=== PATIENT | female | born 1950 | race African-American/Black ===

== ENCOUNTER 2021-02-16 06:04 | Observation (INO) ==
[2021-02-16 08:39] LABS: Basophils % 0.2 %; Eosinophils # 0.1 K/mcL (0.0-0.6); Eosinophils % 0.5 %; Hematocrit 40.6 % (35.3-44.9); Hemoglobin 12.5 g/dL (11.5-15.4); Immature Granulocytes % 0.3 % (0-4); Lymphocytes # 1.4 K/mcL (0.6-4.6); Lymphocytes % 14.1 %; Mean Corpuscular HGB Conc 30.8 g/dL (31.6-35.5); Mean Corpuscular Hemoglobin 29.1 pg (28.0-33.3); Mean Corpuscular Volume 94.4 fL (83.0-100.0); Mean Platelet Volume 9.5 fL (9.4-12.4); Monocytes # 0.8 K/mcL (0.0-1.3); Monocytes % 8.3 %; Neutrophils # 7.4 K/mcL (1.6-8.9); Platelet Count 257 K/mcL (140-400); Red Cell Distribution Width 13.4 % (11.5-14.5); Segmented Neutrophils % 76.6 %; White Blood Count 9.7 K/mcL (4.3-11.1)
[2021-02-16 09:00] LABS: Albumin 4.1 g/dL (3.5-5.7); Albumin/Globulin Ratio 1.4 (1.1-2.2); Bilirubin,Direct 0.1 mg/dL (0.0-0.2); Bilirubin,Indirect 0.4 mg/dL (0.0-1.0); Bilirubin,Total 0.5 mg/dL (0.3-1.0); Globulin 2.9 g/dL (2.4-3.5)
[2021-02-16 09:02] LABS: BUN/Creatinine Ratio 12 (6-26); Blood Urea Nitrogen 9 mg/dL (8-23); Calcium 8.7 mg/dL (8.6-10.3); Carbon Dioxide 22 mEq/L (23-29); Chloride 106 mEq/L (98-107); Glucose 95 mg/dL (70-105); Osmolality,Calculated 280 (280-300); Potassium 3.6 mEq/L (3.5-5.1); Sodium 136 mEq/L (136-145); Troponin I < 0.03 ng/mL (< 0.04); eGFR For African Americans > 60 (> 60); eGFR For Non-African Americans > 60 (> 60)
[2021-02-16] MEDS ORDERED: diazePAM 5 MG TABLET PO PRN (12:22)
[2021-02-16 12:54] LABS: Magnesium 2.1 mg/dL (1.6-2.6)
[2021-02-16] MEDS ORDERED: Acetaminophen 325 MG TABLET PO PRN (13:50)
[2021-02-16] MEDS ORDERED: Ondansetron ODT 4 MG TAB.RAPDIS SL PRN (13:50)
[2021-02-16] MEDS: Budesonide/Formoterol 160/4.5 1 PUFF INH IH SCH (19:50)
[2021-02-16] MEDS: Spironolactone 25 MG TABLET PO SCH (20:48)
[2021-02-16] MEDS ORDERED: estradioL 1 MG TABLET PO SCH (21:00)
[2021-02-16] MEDS ORDERED: Gabapentin 300 MG CAPSULE PO SCH (21:00)
[2021-02-17] MEDS ORDERED: Regadenoson 0.4 MG/5 ML SYRINGE IVP ONE (05:58)
[2021-02-17] MEDS: Budesonide/Formoterol 160/4.5 1 PUFF INH IH SCH (07:57)
[2021-02-17] MEDS ORDERED: Loratadine 10 MG TABLET PO SCH (09:00)
[2021-02-17] MEDS ORDERED: FELODIPINE 2.5 MG PO SCH (09:00)
[2021-02-17] MEDS: Spironolactone 25 MG TABLET PO SCH (09:38)
[2021-02-17 11:45] VITALS: BP 119/71
== END 2021-02-17 13:41 | disposition home or self-care (01) ==
LOC: CDU 06:04 → EMEROOARM 06:04 → CDU 10:40 → 3BNU 13:59
PROVIDERS: ADMIT Internal Medicine; ATTEND Internal Medicine

== ENCOUNTER 2022-01-10 17:27 | Observation (INO) ==
[2022-01-10 18:23] LABS: Basophils % 0.3 %; Eosinophils % 0.4 %; Hematocrit 42.4 % (35.3-44.9); Hemoglobin 13.5 g/dL (11.5-15.4); Immature Granulocytes % 0.3 % (0-4); Lymphocytes # 2.2 K/mcL (0.6-4.6); Lymphocytes % 21.6 %; Mean Corpuscular HGB Conc 31.8 g/dL (31.6-35.5); Mean Corpuscular Hemoglobin 29.2 pg (28.0-33.3); Mean Corpuscular Volume 91.8 fL (83.0-100.0); Mean Platelet Volume 9.7 fL (9.4-12.4); Monocytes # 0.7 K/mcL (0.0-1.3); Monocytes % 6.3 %; Neutrophils # 7.3 K/mcL (1.6-8.9); Platelet Count 255 K/mcL (140-400); Red Blood Count 4.62 M/mcL (3.82-4.97); Red Cell Distribution Width 13.6 % (11.5-14.5); Segmented Neutrophils % 71.1 %; White Blood Count 10.3 K/mcL (4.3-11.1)
[2022-01-10 18:34] LABS: INR 1.1; Prothrombin Time 12.1 Seconds (9.4-12.1)
[2022-01-10 19:07] LABS: BUN/Creatinine Ratio 11 (6-26); Blood Urea Nitrogen 9 mg/dL (8-23); Carbon Dioxide 25 mEq/L (23-29); Chloride 105 mEq/L (98-107); Glucose 163 mg/dL (70-105); Osmolality,Calculated 288 (280-300); Potassium 3.5 mEq/L (3.5-5.1); Sodium 138 mEq/L (136-145); Troponin I < 0.03 ng/mL (< 0.04); eGFR For African Americans > 60 (> 60); eGFR For Non-African Americans > 60 (> 60)
[2022-01-10] MEDS ORDERED: *HR* Heparin 5,000 UNIT/ML VIAL IVP PRN ×2 (19:41)
[2022-01-10] MEDS ORDERED: *HR* Heparin 5,000 UNIT/ML VIAL IVP ONE (19:41)
[2022-01-10] MEDS ORDERED: Heparin 25,000UNIT/250ML 1/2NS 25,000 UNIT/250 ML IV.SOLN IVC SCH (19:45)
[2022-01-10] MEDS ORDERED: Naloxone 0.4 MG/ML INJ IVP PRN (19:50)
[2022-01-10] MEDS ORDERED: Ondansetron 4 MG/2 ML VIAL IVP PRN (19:50)
[2022-01-10] MEDS ORDERED: Acetaminophen 325 MG TABLET PO PRN (19:50)
[2022-01-10] MEDS ORDERED: Perflutren Lipid Microsphere 1.3 ML in 0.9 % Sodium Chloride 8.7 ML IVP PRN (19:55)
[2022-01-10 20:03] LABS: Bilirubin,Urine Negative (Negative); Blood,Urine Negative (Negative); Clarity,Urine Clear (Clear); Color,Urine Colorless (Yellow); Glucose,Urine (UA) Normal (Normal); Ketones,Urine Negative (Negative); Leukocyte Esterase,Urine Negative (Negative); Nitrite,Urine Negative (Negative); Protein,Urine Negative (Neg-Trace); Specific Gravity,Urine > 1.030 (1.010-1.025); Urobilinogen,Urine Normal (Normal)
[2022-01-10 22:38] LABS: INR 1.1; Prothrombin Time 12.3 Seconds (9.4-12.1)
[2022-01-10 22:39] LABS: Heparin anti-factor XA UFH 1.67 IU/mL (0.30-0.70)
[2022-01-10] MEDS ORDERED: Sucralfate 1 GM TABLET PO PRN (22:51)
[2022-01-10] MEDS ORDERED: diazePAM 5 MG TABLET PO PRN (22:51)
[2022-01-11 04:02] LABS: Adenovirus Not Detected (Not Detect); Coronavirus 229E Not Detected (Not Detect); Coronavirus HKU1 Not Detected (Not Detect); Coronavirus NL63 Not Detected (Not Detect); Coronavirus OC43 Not Detected (Not Detect)
[2022-01-11 04:03] LABS: Bordetella Pertussis Not Detected (Not Detect); Chlamydophila pneumoniae Not Detected (Not Detect); Human Metapneumovirus Not Detected (Not Detect); Human Rhinovirus/Enterovirus Not Detected (Not Detect); Influenza A Subtype 2009 H1 Not Detected (Not Detect); Influenza B Not Detected (Not Detect); Parainfluenza Virus 1 Not Detected (Not Detect); Parainfluenza Virus 2 Not Detected (Not Detect); Parainfluenza Virus 3 Not Detected (Not Detect); Parainfluenza Virus 4 Not Detected (Not Detect); Respiratory Syncytial Virus Not Detected (Not Detect); SARS-CoV-2 DETECTED (Not Detect)
[2022-01-11 04:04] LABS: Mycoplasma pneumoniae Not Detected (Not Detect)
[2022-01-11 07:12] LABS: Basophils % 0.2 %; Eosinophils # 0.1 K/mcL (0.0-0.6); Eosinophils % 0.7 %; Hematocrit 39.2 % (35.3-44.9); Hemoglobin 12.6 g/dL (11.5-15.4); Immature Granulocytes % 0.3 % (0-4); Lymphocytes # 2.4 K/mcL (0.6-4.6); Lymphocytes % 26.3 %; Mean Corpuscular HGB Conc 32.1 g/dL (31.6-35.5); Mean Corpuscular Hemoglobin 29.7 pg (28.0-33.3); Mean Corpuscular Volume 92.5 fL (83.0-100.0); Mean Platelet Volume 9.6 fL (9.4-12.4); Monocytes # 0.8 K/mcL (0.0-1.3); Monocytes % 8.8 %; Neutrophils # 5.7 K/mcL (1.6-8.9); Platelet Count 235 K/mcL (140-400); Red Blood Count 4.24 M/mcL (3.82-4.97); Red Cell Distribution Width 13.7 % (11.5-14.5); Segmented Neutrophils % 63.7 %
[2022-01-11 08:23] LABS: Alanine Aminotransferase 17 Units/L (7-52); Albumin 3.8 g/dL (3.5-5.7); Albumin/Globulin Ratio 1.4 (1.1-2.2); Alkaline Phosphatase 60 Units/L (34-104); Aspartate Amino Transferase 16 Units/L (13-39); BUN/Creatinine Ratio 13 (6-26); Bilirubin,Direct 0.1 mg/dL (0.0-0.2); Bilirubin,Indirect 0.4 mg/dL (0.0-1.0); Bilirubin,Total 0.5 mg/dL (0.3-1.0); Blood Urea Nitrogen 9 mg/dL (8-23); Calcium 8.8 mg/dL (8.6-10.3); Carbon Dioxide 23 mEq/L (23-29); Chloride 107 mEq/L (98-107); Globulin 2.8 g/dL (2.4-3.5); Glucose 112 mg/dL (70-105); Magnesium 2.1 mg/dL (1.6-2.6); Osmolality,Calculated 285 (280-300); Potassium 3.4 mEq/L (3.5-5.1); Sodium 138 mEq/L (136-145); Thyroid Stimulating Hormone 7.351 mcIU/mL (0.340-5.600); Total Protein 6.6 g/dL (6.4-8.9); Troponin I < 0.03 ng/mL (< 0.04); eGFR For African Americans > 60 (> 60); eGFR For Non-African Americans > 60 (> 60)
[2022-01-11] MEDS ORDERED: Spironolactone 25 MG TABLET PO SCH (09:00)
[2022-01-11] MEDS ORDERED: [UNRECOGNIZED DRUG - OTHER] PO SCH (09:00)
[2022-01-11] MEDS ORDERED: Fluticasone Propionate Nasal 50 MCG/SPRAY BOTTLE NS SCH (09:00)
[2022-01-11] MEDS ORDERED: SODIUM FLUORIDE PO SCH (09:00)
[2022-01-11] MEDS ORDERED: Gabapentin 300 MG CAPSULE PO SCH (09:00)
[2022-01-11] MEDS ORDERED: FELODIPINE 2.5 MG PO SCH (09:00)
[2022-01-11] MEDS ORDERED: Budesonide/Formoterol 160/4.5 1 PUFF INH IH SCH (10:00)
[2022-01-11 10:55] LABS: Estimated Average Glucose 123 mg/dl; Hemoglobin A1C 5.9 %
[2022-01-11 11:08] VITALS: BP 155/88; PULSE 77; TEMP 98.4
[2022-01-11] MEDS ORDERED: Apixaban 5 MG TABLET PO SCH (11:15)
[2022-01-11 14:44] VITALS: O2SAT 95
== END 2022-01-11 13:13 | disposition home or self-care (01) ==
LOC: EMEROOARM 17:27 → 2ANU 17:27
PROVIDERS: ADMIT Family Medicine; ATTEND Family Medicine